=== PATIENT | female | born 1990 | race Two or more races ===

== ENCOUNTER → 2016-11-18 | Emergency (ER) | payer SELFPAY ==
[~2016-11-18] MED LIST: ACETAMINOPHEN 325 MG TABLET (FP) ONE; ACETAMINOPHEN 325 MG TABLET (FP) PO ONE
[2016-11-18 17:41] VITALS: TEMP 98.3; BMI 21.2
--- NOTE | 2016-11-18 19:18 | PDOC ---
History of Present Illness - General History Source: Patient Exam Limitations: No Limitations <Dawit Pillai - Last Filed: 11/18/16 22:11> - General History Source: Patient Exam Limitations: No Limitations - History of Present Illness Initial Comments: 11/18/16 19:18 The patient is a 26 year old female, A1, with no significant past medical history, who presents to the emergency department with vaginal bleeding and abdominal pain for the past 4 days. She notes that on 09/22/16 she took a plan B pill and since then had been having intermittent vaginal bleeding for roughly a month. Which resolved for 2 weeks but has returned 4 days ago. She reports that she is now passing large clots and today has used multiple pads in a period of 5 hours. She notes that her menstrual cycle is usually regular of medium to light flow. The patient denies chest pain, shortness of breath, headache and dizziness. Denies fever, chills, nausea, vomit, diarrhea and constipation. Denies dysuria, frequency, urgency. Allergies: None Past surgical history: None reported Social history: Occasional alcohol use. No tobacco or drug use reported <Higinio Guevara - Last Filed: 11/18/16 22:46> - General Chief Complaint: Vaginal Bleeding Stated Complaint: VAGINAL BLEEDING Time Seen by Provider: 11/18/16 17:39 Past History - Past Medical History Other medical history: denies - Reproductive History Is Patient Now?: No - Psycho/Social/Smoking Cessation Hx Suicidal Ideation: No Smoking History: Never smoked Hx Alcohol Use: Yes (occasional) Drug/Substance Use Hx: No Substance Use Type: None <Dawit Pillai - Last Filed: 11/18/16 22:11> <Higinio Guevara - Last Filed: 11/18/16 22:46> - Past Medical History Allergies/Adverse Reactions: Allergies Allergy/AdvReac Type Severity Reaction Status Date / Time nickel Allergy Verified 11/18/16 17:40 Home Medications: Ambulatory Orders Ciprofloxacin 0.3% Eye Oint [Ciloxan 0.3% Eye Ointment -] 1 applic OD TID #1 tube 10/31/16 Naproxen [Naprosyn -] 500 mg PO BID PRN #14 tablet 11/18/16 Review of Systems - Review of Systems Able to Perform ROS?: Yes Comments:: 11/18/16 19:19 GENERAL/CONSTITUTIONAL: No fever or chills. No weakness. HEAD, EYES, EARS, NOSE AND THROAT: No change in vision. No ear pain or discharge. No sore throat. CARDIOVASCULAR: No chest pain or shortness of breath RESPIRATORY: No cough, wheezing, or hemoptysis. GASTROINTESTINAL: No nausea, vomiting, diarrhea or constipation. GENITOURINARY: +Vaginal bleeding. No dysuria, frequency, or change in urination. MUSCULOSKELETAL: No joint or muscle swelling or pain. No neck or back pain. SKIN: No rash NEUROLOGIC: No headache, vertigo, loss of consciousness, or change in strength/ sensation. ENDOCRINE: No increased thirst. No abnormal weight change HEMATOLOGIC/LYMPHATIC: No anemia, easy bleeding, or history of blood clots. ALLERGIC/IMMUNOLOGIC: No hives or skin allergy. <Higinio Guevara - Last Filed: 11/18/16 22:46> *Physical Exam - Vital Signs Last Vital Signs Temp Pulse Resp BP Pulse Ox 98.3 F 88 16 129/73 99 11/18/16 17:36 11/18/16 17:36 11/18/16 17:36 11/18/16 17:36 11/18/16 19:09 <Dawit Pillai - Last Filed: 11/18/16 22:11> - Vital Signs Last Vital Signs Temp Pulse Resp BP Pulse Ox 98.3 F 88 16 129/73 99 11/18/16 17:36 11/18/16 17:36 11/18/16 17:36 11/18/16 17:36 11/18/16 19:09 - Physical Exam Comments: 11/18/16 19:20 GENERAL: Awake, alert, and fully oriented, in no acute distress HEAD: No signs of trauma, normocephalic, atraumatic EYES: PERRLA, EOMI, sclera anicteric, conjunctiva clear ENT: Auricles normal inspection, hearing grossly normal, nares patent, oropharynx clear without exudates. Moist mucosa NECK: Normal ROM, supple, no lymphadenopathy, JVD, or masses LUNGS: No distress, speaks full sentences, clear to auscultation bilaterally HEART: Regular rate and rhythm, normal S1 and S2, no murmurs, rubs or gallops, peripheral pulses normal and equal bilaterally. ABDOMEN: Soft, nontender, normoactive bowel sounds. No guarding, no rebound. No masses EXTREMITIES: Normal inspection, Normal range of motion, no edema. No clubbing or cyanosis. NEUROLOGICAL: Cranial nerves II through XII grossly intact. Normal speech, normal gait, no focal sensorimotor deficits SKIN: Warm, Dry, normal turgor, no rashes or lesions noted. PELVIC EXAM: +Blood in vaginal vault. No CMT tenderness, no adnexal tenderness, cervical os closed <Higinio Guevara - Last Filed: 11/18/16 22:46> ED Treatment Course - LABORATORY CBC & Chemistry Diagram: 11/18/16 19:09 11/18/16 19:09 <Dawit Pillai - Last Filed: 11/18/16 22:11> - LABORATORY CBC & Chemistry Diagram: 11/18/16 19:09 11/18/16 19:09 - RADIOLOGY Radiograph Interpretation: 11/18/16 22:41 Transvaginal ultrasound Reviewed by: Dr. Abdelrahman Engel Impression: Normal appearing uterus. Likely partially ruptured left ovarian hemmorhagic cyst measuring 3.5 x 1.9 cm. Right adnexal complex mass like lesion inseparable from the right ovary with a total measurement of 6.7 x 4.9 cm including the right ovary. Differential diagnosis included an abscess versus any other cause of a solid adnexal mass. Ectopic is much less likely with a negative beta-hCG level. <Higinio Guevara - Last Filed: 11/18/16 22:46> Medical Decision Making - Medical Decision Making 11/18/16 19:16 A portion of this note was documented by scribe services under my direction. I have reviewed the details of the note, within reason, and agree with the documentation with the following case summary and management plan written by me. Patient treated in the ED. Nursing notes are reviewed and incorporated into the medical decision-making. Vital signs reviewed. Peripheral IV access obtained by the nurse, laboratory studies are drawn and sent, reviewed and interpreted by myself. Vital Signs Temp Pulse Resp BP Pulse Ox 98.3 F 88 16 129/73 99 11/18/16 17:36 11/18/16 17:36 11/18/16 17:36 11/18/16 17:36 11/18/16 19:09 26-year-old female with no past medical history , prior presents with 5 days of vaginal bleeding. At the end of August, patient had taken a Plan B. She had approximately one month of vaginal bleeding which resolved. Had 2 weeks of no bleeding but 5 days ago started to bleed fairly heavily with 5 pads in the last 5 hours today. Reports some lower abdominal cramping but denies jacki abdominal pain. Denies lightheadedness or dizziness. I suspect that her dysmenorrhea is secondary to hormonal fluctuations her Plan B that she had taken at the end of August. Over, within differential is uterine fibroids. We'll obtain blood work to check hematocrit, urine test, transvaginal ultrasound and reassess. 11/18/16 22:03 Ultrasound reviewed. Likely partially ruptured left ovarian hemorrhagic cyst measuring 3.5 x 1.9 cm. Right adnexal complex mass like lesion inseparable from the right ovary with a total measurement of 6.7 x 4.9 Center including the right ovary. Differential diagnosis includes an abscess versus any other cause of solid adnexal mass. Ectopic is much less likely with a negative beta hCG level. Joint capsule suggested further evaluation as needed. Beta hCG negative. CBC, BMP 11/18/16 19:09 11/18/16 19:09 CMP Sodium 140 mmol/L (136-145) 11/18/16 19:09 Potassium 3.6 mmol/L (3.5-5.1) 11/18/16 19:09 Chloride 105 mmol/L (98-107) 11/18/16 19:09 Carbon Dioxide 23 mmol/L (21-32) 11/18/16 19:09 Anion Gap 12 (8-16) 11/18/16 19:09 BUN 9 mg/dL (7-18) 11/18/16 19:09 Creatinine 0.8 mg/dL (0.55-1.02) 11/18/16 19:09 Creat Clearance w eGFR > 60 (>60) 11/18/16 19:09 Random Glucose 84 mg/dL (74-106) 11/18/16 19:09 Calcium 8.4 mg/dL (8.5-10.1) L 11/18/16 19:09 Total Bilirubin 0.3 mg/dL (0.2-1.0) 11/18/16 19:09 AST 12 U/L (15-37) L 11/18/16 19:09 ALT 17 U/L (12-78) 11/18/16 19:09 Alkaline Phosphatase 55 U/L (45-117) 11/18/16 19:09 Total Protein 7.8 g/dl (6.4-8.2) 11/18/16 19:09 Albumin 3.7 g/dl (3.4-5.0) 11/18/16 19:09 Beta HCG, Quant < 1.0 mIU/ml 11/18/16 19:09 Urine Test Results Urine Color Yellow 11/18/16 19:09 Urine Appearance Slcloudy 11/18/16 19:09 Urine pH 6.0 (5.0-8.0) 11/18/16 19:09 Ur Specific [place] 1.015 (1.001-1.035) 11/18/16 19:09 Urine Protein 1+ (NEGATIVE) H 11/18/16 19:09 Urine Glucose (UA) Negative (NEGATIVE) 11/18/16 19:09 Urine Ketones Negative (NEGATIVE) 11/18/16 19:09 Urine Blood 3+ (NEGATIVE) H 11/18/16 19:09 Urine Nitrite Negative (NEGATIVE) 11/18/16 19:09 Urine Bilirubin Negative (NEGATIVE) 11/18/16 19:09 Ur Leukocyte Esterase Trace (NEGATIVE) H 11/18/16 19:09 Urine RBC 3729 /hpf (0-3) 11/18/16 19:09 Urine WBC 7 /hpf (3-5) 11/18/16 19:09 Ur Epithelial Cells Rare /hpf (FEW) 11/18/16 19:09 I discussed and consulted the case with Dr. Shell, the roll edge stitcher hand and public health outreach worker. I expressed my concerns for this mass of the right ovary. After discussing the case, it may be possible that the patient hasn't hemorrhagic cyst and the mass may potentially represent blood clots. However, the patient will need very strict and close follow-up for this mass. Dr. Shell agrees and requests that she follows up rapidly for an outpatient follow-up. This may also include tumor markers. At this time, I do not suspect an abscess. She has no fevers, chills. No elevated white count. I expressed to the patient numerous times and had the patient repeat to me that she is to follow-up with [facility] regarding this mass for potential tumor. Patient states that she will follow-up with your [facility] clinic. Her hematocrit is stable. Patient remained stable. Return precautions given. I discussed the physical exam findings, ancillary test results and final diagnoses with the patient. I answered all of the patient's questions. The patient was satisfied with the care received and felt comfortable with the discharge plan and treatment plan. The patient will call their primary care physician within 24 hours to arrange follow-up and will return to the Emergency Department with any new, persistant or worsening symptoms. <Dawit Pillai - Last Filed: 11/18/16 22:11> - Medical Decision Making 11/18/16 22:46 Dr. Shell was consulted regarding the patient at 9:50pm [phone] <Higinio Guevara - Last Filed: 11/18/16 22:46> *DC/Admit/Observation/Transfer - Discharge Dispostion Admit: No <Dawit Pillai - Last Filed: 11/18/16 22:11> - Attestations Scribe Attestion: 11/18/16 19:20 Documentation prepared by Higinio Guevara, acting as medical lab tech instructor for Dawit Pillai MD <Higinio Guevara - Last Filed: 11/18/16 22:46> Diagnosis at time of Disposition: Vaginal bleeding, Ovarian mass, right - Discharge Dispostion Disposition: HOME Condition at time of disposition: Stable - Prescriptions Prescriptions: Naproxen [Naprosyn -] 500 mg PO BID PRN #14 tablet PRN Reason: Pain - Referrals Referrals: Dangelo Menendez MD [Staff Physician] - Margi Shell MD [Staff Physician] - - Patient Instructions Printed Discharge Instructions: DI for Vaginal Bleeding, DI for Ovarian Cyst Additional Instructions: Take 500 mg naproxen every 12 hours as needed for bleeding. Your ultrasound shows a hemorrhagic cyst. Your cyst is likely a potential source of pain. However, there is a mass on her right ovary. Though this may be from the bleeding from the cyst, it is extremely important that you follow up with an [facility] doctor. The [facility] doctors here requesting that she will call and schedule an appointment in their clinic in the next few days. A Mass like this needs to be evaluated for potential tumor. If you have any uncontrollable pain, uncontrollable bleeding, please return to the ER for further evaluation.
[2016-11-18 19:28] LABS: BASOPHIL 0.5 % (0-2.0); EOSINOPHIL 0.9 % (0-4.5); MCH 30.4 pg (25.7-33.7); MCHC 33.8 g/dl (32.0-36.0); MEAN CELL VOLUME 89.8 fl (80-96); MEAN PLT VOLUME 8.1 fl (7.5-11.1); NEUTROPHILS 75.9 % (42.8-82.8); PLATELET COUNT 278 K/MM3 (134-434); RDW 12.5 % (11.6-15.6); WHITE BLOOD COUNT 10.6 K/mm3 (4.0-10.0)
[2016-11-18 19:29] LABS: URINE APPEARANCE SLCLOUDY; URINE BILIRUBIN NEGATIVE (NEGATIVE); URINE COLOR YELLOW; URINE GLUCOSE (UA) NEGATIVE (NEGATIVE); URINE KETONE NEGATIVE (NEGATIVE); URINE NITRITE NEGATIVE (NEGATIVE); URINE UROBILINOGEN NEGATIVE E.U./dl (0.2-1.0)
[2016-11-18 19:39] LABS: URINE BLOOD 3+ (NEGATIVE); URINE LEUK ESTERASE TRACE (NEGATIVE); URINE PROTEIN 1+ (NEGATIVE)
[2016-11-18 19:43] LABS: URINE RBC 3729 /hpf (0-3); URINE WBC 7 /hpf (3-5)
[2016-11-18 20:09] LABS: ALBUMIN 3.7 g/dl (3.4-5.0); ANION GAP 12 (8-16); BILIRUBIN,TOTAL 0.3 mg/dL (0.2-1.0); CALCIUM 8.4 mg/dL (8.5-10.1); CO2 23 mmol/L (21-32); CREATININE 0.8 mg/dL (0.55-1.02); GLUCOSE,RANDOM 84 mg/dL (74-106); SGOT/AST 12 U/L (15-37); SGPT/ALT 17 U/L (12-78); TOT PROT 7.8 g/dl (6.4-8.2)
[2016-11-18 20:12] LABS: ALK PHOS 55 U/L (45-117)
[2016-11-18 22:23] VITALS: BP 124/57; PULSE 87
== END | disposition home or self-care (01) ==
LOC: JER 17:20
DX: N93.8 Other specified abnormal uterine and vaginal bleeding (principal); N83.8 Other noninflammatory disorders of ovary, fallopian tube and broad ligament; N83.201 Unspecified ovarian cyst, right side
CPT/HCPCS: 36415; 76830-TC; 80053; 81003; 81015; 84702; 85025; 86850; 86900; 86901; 87086; 99284-25

== ENCOUNTER → 2017-02-02 | Day surgery (SDC) | payer OTHER ==
[2017-02-01 12:03] VITALS: BMI 22.4
[~2017-02-02] MED LIST changes: +ACETAMINOPHEN 1000 MG/100 ML VIAL (NON FORMULARY) IVPB ONE; -ACETAMINOPHEN 325 MG TABLET (FP) ONE; -ACETAMINOPHEN 325 MG TABLET (FP) PO ONE; +CEFAZOLIN 1 GM/D5W 50 ML IVPB ONE; +KETOROLAC TROMETHAMINE 30 MG/1 ML VIAL IVPUSH ONE; +LACTATED RINGERS SOLUTION 1,000 ML IV SCH; +LIDOCAINE 1%/EPI 1:100000 (50 ML MULTI DOSE VIAL) INF ONE; +ONDANSETRON 4 MG/2 ML VIAL IVPUSH PRN; +ceFAZolin SODIUM 1 GM VIAL IVPB ONE; +oxyCODONE HCL 5 MG TABLET PO PRN
[2017-02-02 10:26] LABS: INR 1.1 (0.82-1.09); PROTHROMBIN TIME (PATIENT) 12.1 SEC (9.98-11.88)
[2017-02-02 10:59] LABS: LDH 122 U/L (84-246)
--- NOTE | 2017-02-02 11:19 | HP ---
History & Physical Update - History History: No Change - Physical Physical: No Change - Assessment Assessment: No Change - Plan Plan: No Change (This is my first time meeting the patient. I have informed her that I will be assisting Dr. Perdomo during today's procedure. She is fine with it.)
--- NOTE | 2017-02-02 13:44 | OP ---
Operative Note - Note: Operative Date: 02/02/17 Pre-Operative Diagnosis: Bilateral adnexal masses, elevated CA 125, abnormal uterine bleeding Operation: Robotic right salpingoophorectomy, dilatation and curettage, chromopertubation, lysis of adhesions Findings: 7 cm right ovarian cyst, right tube dilated, left tube dilated, normal left ovary, normal uterus, endometriosis implants in right uterosacral ligament, normal appendix, multiple filmy adhesions/loculations in pelvis around bilateral adnexae Post-Operative Diagnosis: Other Surgeon: Aida Perdomo Copyman: Tobias Monsivais Anesthesia: General, Local Specimens Removed: Right tube and ovary, endometrial curettings, right uterosacral endometriosis Estimated Blood Loss (mls): 25 Drains & Tubes with Location: none Operative Report Dictated: Yes
--- NOTE | 2017-02-02 14:05 | SURG ---
Surgery Hand Drawer In Note Hand Drawer In: Tobias Monsivais PA-C Date of Service: 02/02/17 Diagnosis: Bilateral adnexal masses, elevated CA 125, abnormal uterine bleeding Procedure: Robotic right salpingoophorectomy, dilatation and curettage, chromopertubation, lysis of adhesions I was present for the entirety of the operative procedure. For further detail, please refer to operative report. Visit type - Case Type Case Type: Scheduled Admission - New patient This patient is new to me today: Yes Date on this admission: 02/02/17
[2017-02-02 15:47] VITALS: TEMP 98.2
[2017-02-02 17:15] VITALS: BP 138/78; PULSE 68
--- NOTE | 2017-02-02 17:19 | OP ---
DATE OF OPERATION: 02/02/2017 PREOPERATIVE DIAGNOSIS: Bilateral adnexal masses, elevated CA125 and abnormal uterine bleeding. POSTOPERATIVE DIAGNOSIS: Right ovarian dermoid cyst. Right hydrosalpinx. Endometriosis. Abnormal uterine bleeding. SURGEON: Aida Perdoom M.D. MED AIDE: Rosa Cordoba ANESTHESIA: General endotracheal anesthesia and local. ESTIMATED BLOOD LOSS: 25 mL. PROCEDURE: Robotic-assisted right salpingoophorectomy, dilation and curettage, lysis of adhesions, and chromopertubation, and pelvic endometriosis excision. ESTIMATED BLOOD LOSS: 25 mL. COMPLICATIONS: None. INDICATION: This is a 26-year-old 1 para 0, TAB 1, with history of right adnexal mass. She had presented to the ED complaining of heavy menses and abnormal bleeding for approximately the entire month of October. Pelvic ultrasound was performed which showed a normal sized uterus, endometrial stripe with 7 mm, a complex solid and cystic right adnexal mass was seen measuring 8.2 x 6.8 cm. The last adnexa appeared complex, measuring 1.8 x 6 x 7.5 cm with complex fluid in the pelvis. CA125 was 535. Patient was counseled regarding surgical management. Risks, benefits, indications, and alternatives were discussed with the patient. All questions were answered. Informed consent was signed. PROCEDURE: The patient was taken to the operating room, placed in dorsal supine position. General endotracheal anesthesia was obtained without difficulty. She was then placed in the dorsal lithotomy position, and Anthony stirrups were prepped and draped in normal sterile fashion. Morrison catheter was placed in the bladder. Speculum was placed in the vagina. Cervix was grasped with a single-tooth tenaculum and the cervix was gently dilated with uterine manipulators. A gentle endometrial curettage was performed, moderate amount of endometrial tissue was able to be obtained. The ZUMI uterine manipulator was then placed. The tenaculum and speculum were then removed. Attention was then turned to the patient's abdomen. Then 5 mL of 1% lidocaine with epinephrine was injected into the umbilicus, and an 8-mm incision was made with the scalpel. While attempting to enter the anterior abdominal wall, the Veress needle was inserted intraabdominally. The abdomen was insufflated with CO2 gas, and an 8-mm trocar was then placed. An additional 8-mm trocar was placed in the left mid quadrant, and an 8-mm trocar was placed in the right mid quadrant, and a 12-mm air seal port was placed in the left lower quadrant. All trocars were placed under direct visualization after injecting 1% lidocaine with epinephrine. A thorough exam of the abdomen and pelvis revealed the above noted findings. Da Antonio robot was then docked without difficulty. Peritoneal washings were taken using normal saline. The right adnexa was elevated. There were extensive adhesions around the bilateral adnexa and posterior uterus. These were lysed sharply. The right ureter was noted to be well away from the field of dissection. The infundibulopelvic ligament was clamped, cut and transected. This was carried to the broad ligament and the uteroovarian ligament. The right ovarian tube was then passed in an Endocatch bag to the left lower quadrant port. The mass was sent for frozen section and returned a benign teratoma. The left tube appeared dilated, and the fimbria appeared mildly clubbed. Therefore Isosulfan Blue was passed through the ZUMI manipulator and chromopertubation was performed. There was blue dye noted to flow through the left fallopian tube. The right uterosacral endometriosis was excised and handed off the field for permanent section well away from the right ureter. The appendix was visualized and noted to be normal. The pelvis was thoroughly irrigated and was hemostatic. All instruments were removed from the patient's abdomen. The Da Antonio robot was then undocked, all trocars were removed. The left lower quadrant incision was closed in the fascia using 0 Vicryl in a running continuous fashion. Skin was closed with 4-0 Monocryl, and Dermabond was applied. The ZUMI manipulator was removed as well as the Morrison catheter. Patient was extubated and transferred in stable condition to PACU. Ananya [id number]
--- NOTE | 2017-02-04 13:28 | PATH ---
Surgical Pathology Report Patient Name: [facility]LINDA [facility]. Rec. #: [id number] /Age/Gender: 1990 (Age: 26) / F Account: [id number] Location: [facility] Taken: 02/02/2017 Received: 02/02/2017 Reported: 02/04/2017 Physicians: Aida Perdomo MD Specimen(s) Received A: RIGHT FALLOPIAN TUBE AND OVARY B: ENDOMETRIAL CURETTINGS C: RIGHT UTEROSACRAL ENDOMETRIOSIS EXCISION Clinical History Bilateral adnexal mass Intraoperative Consult Diagnosis Right tube and ovary: Benign on sales representative girls' apparel section and gross exam. Dr. Pelayo, 02/02/17. Final Diagnosis A. FALLOPIAN TUBE AND OVARY, RIGHT, SALPINGO-OOPHORECTOMY: OVARY WITH MATURE CYSTIC TERATOMA AND CYSTIC FOLLICLES. FALLOPIAN TUBE WITH CHRONIC SALPINGITIS AND MILD HYDROSALPINX. B. ENDOMETRIUM, CURETTAGE: PREDOMINANTLY PROLIFERATIVE TYPE ENDOMETRIUM WITH EVIDENCE OF CHRONIC ENDOMETRITIS. Comment: Immunohistochemical stain for CD138 performed at [place], [place] ([id number]) on block B1 and interpreted at [facility] highlights plasma cells in the endometrial stroma, supporting the impression of chronic endometritis. C. "UTEROSACRAL ENDOMETRIOSIS", RIGHT, EXCISION: BENIGN SOFT TISSUE WITH INVOLVEMENT BY ENDOMETRIOSIS (SEE COMMENT). Comment: Immunohistochemical stain for CD10 performed at [place], [place] ([id number]) on block C1 and interpreted at [facility] highlights endometrial type stroma, supporting the interpretation above. Electronically Signed Melo Pelayo M.D. Gross Description A. Received fresh labeled "right tube and ovary for frozen" is a 3.2 x 2.8 x 2.6 cm pink-hartman, ovoid ovary. The outer surface is smooth. Sectioning reveals hartman sebaceous material and hair within the lumen. There is a 6 cm in length fimbriated fallopian tube also received within the same container. The outer surface is pink-hartman. Sectioning reveals a slightly dilated lumen. Also received within the same container is a 3.5 x 2.5 x 0.7 cm aggregate of hart[place]-red, irregular soft tissue fragments, possibly consistent with cystic portions of ovary. A sales representative girls' apparel section is submitted for frozen section. Fire Alarm Dispatcher sections are submitted in 9 cassettes as follows: 1-frozen section residue; 2-fallopian tube fimbria; 3-4-cross sections of fallopian tube; 5-8-ovary; 9-separately received soft tissue fragments. B. Received in formalin labeled "endometrial curettings" is a 1.8 x 1.3 x 0.2 cm aggregate of pink-hartman soft tissue fragments. The formalin is filtered and the specimen is entirely submitted in one cassette. C. Received in formalin labeled "right uterosacral endometriosis excision" are 2 pink-hartman soft tissue fragments measuring 0.6 and 0.8 cm in greatest dimension. The specimens are submitted in toto in one cassette. 02/02/201702/02/2017
--- NOTE | 2017-02-04 13:29 | PATH ---
Cytology Non-Gynecological Report Patient Name: OLINDA [facility]. Rec. #: [id number] /Age/Gender: 1990 (Age: 26) / F Account: [id number] Location: [facility] Taken: 02/02/2017 Received: 02/02/2017 Reported: 02/04/2017 Physicians: Aida Perdomo MD Specimen(s) Received PELVIC WASHINGS Clinical History Bilateral adnexal mass Final Diagnosis PELVIC WASHINGS: SATISFACTORY FOR EVALUATION. NEGATIVE FOR MALIGNANT CELLS. MESOTHELIAL CELLS AND SCATTERED INFLAMMATORY CELLS. Comment: Refer to [id number] for the surgical pathology results. Electronically Signed Melo Pelayo M.D. Gross Description Received is 20 cc of clear fluid per. One cytofunnel slide and one cell block are made.
== END | disposition home or self-care (01) ==
LOC: JASU-SURG 09:27
PROVIDERS: ATTEND Obstetrics & Gynecology Gynecologic Oncology
PROC: 0UB54ZZ Excision of Right Fallopian Tube, Percutaneous Endoscopic Approach (ICD-10-PCS; 2017-02-02)
PROC: 3E0P3GC Introduction of Other Therapeutic Substance into Female Reproductive, Percutaneous Approach (ICD-10-PCS; 2017-02-02)
PROC: 0UN94ZZ Release Uterus, Percutaneous Endoscopic Approach (ICD-10-PCS; 2017-02-02)
PROC: 0UDB7ZX Extraction of Endometrium, Via Natural or Artificial Opening, Diagnostic (ICD-10-PCS; 2017-02-02)
PROC: 8E0W4CZ Robotic Assisted Procedure of Trunk Region, Percutaneous Endoscopic Approach (ICD-10-PCS; 2017-02-02)
PROC: 0UB04ZZ Excision of Right Ovary, Percutaneous Endoscopic Approach (ICD-10-PCS; principal; 2017-02-02 11:00)
DX: N93.9 Abnormal uterine and vaginal bleeding, unspecified (principal); D27.0 Benign neoplasm of right ovary; N70.11 Chronic salpingitis; N80.0 Endometriosis of uterus
CPT/HCPCS: 58120; 58350; 58661; 58662; S2900; 36415; 82105; 83520; 83615; 84702; 85610; 85730; 86850; 86900; 86901; 88108; 88305-TC; 88307-TC; 88331-TC; 94760

== ENCOUNTER 2019-11-14 13:53 | Emergency (ER) | payer OTHER ==
[2019-11-14 14:16] VITALS: BP 121/92; PULSE 69; TEMP 98.3; BMI 23.8
--- NOTE | 2019-11-14 14:37 | PDOC ---
History of Present Illness - General Chief Complaint: Sore Throat Stated Complaint: FEVER/COLD SYMPTOMS/COUGH Time Seen by Provider: 11/14/19 14:17 - History of Present Illness Initial Comments: 11/14/19 14:35 29-year-old female with cough and upper respiratory and symptoms x5 days Past History - Past Medical History Allergies/Adverse Reactions: Allergies Allergy/AdvReac Type Severity Reaction Status Date / Time nickel Allergy Verified 11/14/19 14:13 Home Medications: Ambulatory Orders Oxycodone HCl/Acetaminophen [Percocet 5-325 mg Tablet] 1 tab PO Q4H PRN #20 tablet MDD 6 02/02/17 Anemia: No Asthma: No Cancer: No Cardiac Disorders: No CVA: No COPD: No CHF: No Dementia: No Diabetes: No GI Disorders: No Disorders: No HTN: No Hypercholesterolemia: No Liver Disease: No Seizures: No Thyroid Disease: No - Psycho Social/Smoking Cessation Hx Smoking History: Never smoked Hx Alcohol Use: Yes Drug/Substance Use Hx: No Substance Use Type: None Review of Systems - Review of Systems Constitutional: No: Fever Respiratory: Yes: Cough *Physical Exam - Vital Signs Last Vital Signs Temp Pulse Resp BP Pulse Ox 98.3 F 69 16 121/92 100 11/14/19 14:13 11/14/19 14:13 11/14/19 14:13 11/14/19 14:13 11/14/19 14:13 - Physical Exam 11/14/19 14:35 GENERAL: The patient is awake, alert, and fully oriented, in no acute distress. HEAD: Normal with no signs of trauma. EYES: sclera anicteric, conjunctiva clear. ENT: Ears normal tympanic membranes normal oropharynx clear uvula midline NECK: Normal range of motion LUNGS: Breath sounds equal, clear to auscultation bilaterally. No wheezes, and no crackles. HEART: S1 and S2 without murmur, rub or gallop. ABDOMEN: Soft, nontender, normoactive bowel sounds. No guarding, no rebound. No masses. EXTREMITIES: Normal range of motion, no edema. No clubbing or cyanosis. No cords, erythema, or tenderness. NEUROLOGICAL: Cranial nerves II through XII grossly intact. PSYCH: Normal mood, normal affect. SKIN: Warm, Dry, normal turgor, no rashes or lesions noted. ED Treatment Course - RADIOLOGY Radiology Studies Ordered: Category Date Time Status CHEST PA & LAT [RAD] Stat Radiology 11/14/19 14:23 Taken Medical Decision Making - Medical Decision Making 11/14/19 14:35 No acute infiltrate on chest radiograph supportive care for viral upper respiratory infection benign examination Discharge - Discharge Information Problems reviewed: Yes Clinical Impression/Diagnosis: Viral URI with cough Condition: Stable Disposition: HOME - Admission No - Follow up/Referral Referrals: Pilar Ponce MD [Staff Physician] - - Patient Discharge Instructions Additional Instructions: Your chest x-ray is negative. Continue with the Mucinex as directed and return to the emergency room should symptoms worsen. Without fail follow-up with internal medicine in 1 to 2 days for further evaluation and treatment options - Post Discharge Activity
== END 2019-11-14 14:46 | disposition home or self-care (01) ==
LOC: JERFT 13:53
DX: J06.9 Acute upper respiratory infection, unspecified (principal); B97.89 Other viral agents as the cause of diseases classified elsewhere
CPT/HCPCS: 71046-TC-FY; 99283-25

== ENCOUNTER 2022-04-19 00:01 | Emergency (ER) | payer OTHER ==
[2022-04-19 01:11] VITALS: RESP 18; BMI 20.6
[2022-04-19 03:39] LABS: BLOOD UREA NITROGEN 8.2 mg/dL (7-18); CALCIUM 8.6 mg/dL (8.5-10.1)
[2022-04-19 03:42] LABS: CREATININE 0.7 mg/dL (0.55-1.3)
[2022-04-19 03:44] LABS: BILIRUBIN,TOTAL 0.4 mg/dL (0.2-1); TOT PROT 7.4 g/dl (6.4-8.2)
[2022-04-19 04:20] LABS: BASO % 0.6 % (0-2.0); EOS % 0.8 % (0-4.5); HEMATOCRIT 36.6 % (32.4-45.2); HEMOGLOBIN 12.6 GM/dL (10.7-15.3); LYMPH % 28.4 % (8-40); MCH 31.8 pg (25.7-33.7); MCHC 34.3 g/dl (32.0-36.0); MEAN CELL VOLUME 92.8 fl (80-96); MEAN PLT VOLUME 8.1 fl (7.5-11.1); MONO % 5.6 % (3.8-10.2); NEUT % 64.6 % (42.8-82.8); PLATELET COUNT 258 10^3/uL (134-434); RBC 3.95 M/mm3 (3.60-5.2); RDW 14.2 % (11.6-15.6); WHITE BLOOD COUNT 9.3 K/mm3 (4.0-10.0)
[2022-04-19 04:31] LABS: INR 0.99 (0.83-1.09); PROTHROMBIN TIME (PATIENT) 11.4 SEC (9.7-13.0)
[2022-04-19 04:34] LABS: ACTIVATED PTT 31.3 SECONDS (25.2-36.5)
[2022-04-19] MEDS ORDERED: ACETAMINOPHEN 325 MG TABLET (FP) PO ONE (05:12)
[2022-04-19] MEDS ORDERED: ACETAMINOPHEN 325 MG TABLET (FP) ONE (05:22)
[2022-04-19] MEDS ORDERED: RHO(D) IMMUNE GLOBULIN 1,500 UNIT DISP.SYRIN IM ONE (05:43)
[2022-04-19] MEDS ORDERED: METHOTREXATE SODIUM/PF 25 MG/ML VIAL IM ONE (08:01)
[2022-04-19 09:19] VITALS: BP 119/73; PULSE 81; TEMP 99.5
== END 2022-04-19 09:27 | disposition home or self-care (01) ==
LOC: JER 00:01
PROC: 3E023GC Introduction of Other Therapeutic Substance into Muscle, Percutaneous Approach (ICD-10-PCS; principal; 2022-04-19)
DX: O00.202 Left ovarian pregnancy without intrauterine pregnancy (principal)
CPT/HCPCS: 36415; 76817-TC; 80053; 84702; 84703; 85025; 85610; 85730; 86850; 86900; 86901; 86999; 99284-25; J1561; J9260

== ENCOUNTER 2022-04-22 14:03 | Day surgery (SDC) | payer OTHER ==
[2022-04-22 16:00] LABS: BASO % 0.4 % (0-2.0); EOS % 0.5 % (0-4.5); HEMOGLOBIN 12.6 GM/dL (10.7-15.3); LYMPH % 23.3 % (8-40); MCH 31.9 pg (25.7-33.7); MCHC 33.9 g/dl (32.0-36.0); MEAN CELL VOLUME 93.9 fl (80-96); MEAN PLT VOLUME 7.5 fl (7.5-11.1); MONO % 7.1 % (3.8-10.2); NEUT % 68.7 % (42.8-82.8); PLATELET COUNT 249 10^3/uL (134-434); RBC 3.94 M/mm3 (3.60-5.2); RDW 13.5 % (11.6-15.6); WHITE BLOOD COUNT 6.4 K/mm3 (4.0-10.0)
[2022-04-22 16:24] LABS: BLOOD UREA NITROGEN 4.9 mg/dL (7-18)
[2022-04-22 16:27] LABS: CREATININE 0.7 mg/dL (0.55-1.3)
[2022-04-22 16:29] LABS: BILIRUBIN,TOTAL 0.4 mg/dL (0.2-1); TOT PROT 7.6 g/dl (6.4-8.2)
[2022-04-22] MEDS ORDERED: BUPIVACAINE HCL/PF 0.25% (2.5MG/ML) 10 ML VIAL ONE ×2 (20:04→21:29)
[2022-04-22] MEDS ORDERED: ACETAMINOPHEN 325 MG TABLET (FP) PO PRN (20:33)
[2022-04-22] MEDS ORDERED: ONDANSETRON 4 MG/2 ML VIAL IVPUSH PRN (20:33)
[2022-04-22] MEDS ORDERED: LACTATED RINGERS SOLUTION 1,000 ML IV SCH (20:45)
[2022-04-22] MEDS ORDERED: SUCCINYLCHOLINE CHLORIDE 200 MG/10 ML SYRINGE ONE (20:45)
[2022-04-22] MEDS ORDERED: PROPOFOL 20 ML ONE (20:45)
[2022-04-22] MEDS ORDERED: MIDAZOLAM HCL 2 MG/2 ML SINGLE DOSE VIAL ONE (20:48)
[2022-04-22] MEDS ORDERED: ROCURONIUM BROMIDE 50 MG/5 ML SYRINGE ONE (21:13)
[2022-04-22] MEDS ORDERED: ceFAZolin SODIUM 1 GM VIAL IVPB ONE (21:17)
[2022-04-22] MEDS ORDERED: DEXAMETHASONE SOD PHOSPHATE 4 MG/1 ML VIAL ONE (21:17)
[2022-04-22] MEDS ORDERED: BUPIVACAINE HCL/PF 0.25% (2.5MG/ML) 10 ML VIAL IJ ONE ×2 (21:19)
[2022-04-22] MEDS ORDERED: KETOROLAC TROMETHAMINE 30 MG/1 ML VIAL ONE (21:28)
[2022-04-22] MEDS ORDERED: HYDROmorphone HCl 2 MG/ML VIAL ONE (21:29)
[2022-04-22] MEDS ORDERED: ONDANSETRON 4 MG/2 ML VIAL IM PRN (21:51)
[2022-04-22] MEDS ORDERED: IBUPROFEN 600 MG TABLET (FP) PO PRN (21:51)
[2022-04-22 23:43] VITALS: RESP 18; BMI 21.7
[2022-04-23 04:41] VITALS: BP 112/62; PULSE 67; TEMP 98.4
== END 2022-04-23 12:30 | disposition home or self-care (01) ==
LOC: JER 14:03 → JASUSAT 19:20 → J6S 23:12 → JASUSAT 04-23 12:30
PROVIDERS: ATTEND Obstetrics & Gynecology
PROC: 0UT64ZZ Resection of Left Fallopian Tube, Percutaneous Endoscopic Approach (ICD-10-PCS; 2022-04-22)
PROC: 10T24ZZ Resection of Products of Conception, Ectopic, Percutaneous Endoscopic Approach (ICD-10-PCS; principal; 2022-04-22 21:00)
DX: O00.102 Left tubal pregnancy without intrauterine pregnancy (principal)
CPT/HCPCS: 36415; 76817-TC; 80053; 84702; 85025; 86850; 86870; 86900; 86901; 86902; 88305-TC; 94760; 99285-25; C9803-CS; U0003; U0005